=== PATIENT | female | born 1940 | race Caucasian/White ===

== ENCOUNTER → 2019-01-25 | Outpatient (CLI) | payer MEDICARE ==
[~2019-01-25] MED LIST: ACETAMINOPHEN500 MG PO; Amlodipine Besyl5 MG PO; Aspir 8181 MG PO; Daily Multiple1 EACH PO; FISH OIL 500 M1 EAC1 PO; FURO40 PO; Humalog100 UNIT/1 SC; LIRA0.6P; LISI20 PO; LOPE2EL PO; MONT10T PO; NEBI5 PO; OMEP20ER PO; POTA10T PO; Pravastatin Sod40 MG PO; Z-SLEEP25 MG PO
== END | disposition home or self-care (01) ==
LOC: LAB EV 11:02 → LAB SHORT 11:02
DX: E11.21 Type 2 diabetes mellitus with diabetic nephropathy (principal)
CPT/HCPCS: 82043

== ENCOUNTER → 2020-06-09 | Outpatient (CLI) | payer MEDICARE | END | disposition home or self-care (01) | LOC: LAB SHORT 17:36 → LAB 17:36 | DX: R35.0 Frequency of micturition (principal) | CPT/HCPCS: 87077; 87086; 87147; 87186 ==